=== PATIENT | male | born 1950 | race Caucasian/White ===

== ENCOUNTER 2020-03-18 17:12 | Observation (INO) | payer MEDICARE, OTHER ==
[~2020-03-18] VITALS: Ht 175.3 cm; Wt 77.4 kg
[~2020-03-18 17:12] MED LIST: AMLO-150 PO; CALC500T29 PO; CARV12.52 PO; CARV25TA12 PO; CHOL200052 PO; CIPR250T2 PO; CITA20TA9 PO; ERGO500040 PO; GABA300C10 PO; HYDR-3343 PO; INSU100C; INSU100C5 SC; INSU100V8 SQ; MYCO180T10 PO; OMEP-110 PO; PRAV10TA2 PO; PRED10TA14 PO; TACR1CAP5 PO; TAMS0.4C2 PO; TRAM50TA2 PO
[2020-03-18] MEDS ORDERED: TELM80TA PO (17:48)
[2020-03-18] MEDS ORDERED: TACR1CAP5 PO (17:48)
[2020-03-18] MEDS ORDERED: TACR0.5C4 PO (17:48)
[2020-03-18] MEDS ORDERED: CARV25TA12 PO (17:48)
[2020-03-18] MEDS ORDERED: PRED5TAB PO (17:48)
[2020-03-18] MEDS ORDERED: EVER0.75 PO (17:51)
[2020-03-18] MEDS ORDERED: CHOL10003 PO (17:51)
[2020-03-18] MEDS ORDERED: ACIT10CA2 PO (17:51)
[2020-03-18] MEDS ORDERED: SODIUM CHLORIDE FLUSH 10ML SYR IVF ONE (18:00)
--- NOTE | 2020-03-18 18:10 | NUR ---
RECEIVED REPORT FROM JAMAR Espino RN. PT C/O SOB AND CP AFTER DIGGING POST HOLES IN THE BACKYARD. PT REPORTS PAIN ONLY HAPPENS WHEN HE EXERTS HIMSELF. PT DENIES COUGH, FEVERS, BODY ACHES, CHILLS.
[2020-03-18 18:41] LABS: BASOPHILS # (AUTO) 0.09 x10^3/uL (0-0.1); BASOPHILS % (AUTO) 2 % (0-1); EOSINOPHILS # (AUTO) 0.05 x10^3/uL (0-0.4); EOSINOPHILS % (AUTO) 1 % (1-7); LYMPHOCYTES # (AUTO) 0.46 x10^3/uL (1-3.4); LYMPHOCYTES % (AUTO) 10 % (22-44); MD NO; MEAN CORPUSCULAR HGB CONC 33.9 g/dL (33.2-36.2); MEAN CORPUSCULAR VOLUME 82.8 fL (81-97); MONOCYTES # (AUTO) 0.37 x10^3/uL (0.2-0.8); MONOCYTES % (AUTO) 8 % (2-9); NEUTROPHILS # (AUTO) 3.85 x10^3/uL (1.8-6.8); NEUTROPHILS % (AUTO) 80 % (42-75); PLATELET COUNT 276 x10^3/uL (130-400); RED BLOOD COUNT 4.37 x10^6/uL (4.38-5.82); RED CELL DISTRIBUTION WIDTH 14.5 % (9.4-14.8)
[2020-03-18 18:46] LABS: ALBUMIN 3.3 g/dL (3.4-5.0); ANION GAP 8 mmol/L (5-15); CALCIUM 8.9 mg/dL (8.5-10.1); CHLORIDE 107 mmol/L (98-107)
[2020-03-18 18:52] LABS: ALANINE AMINOTRANSFERASE 20 U/L (12-78); ALKALINE PHOSPHATASE 126 U/L (45-117); BILIRUBIN,TOTAL 0.4 mg/dL (0.2-1.0); CREATININE 1.69 mg/dL (0.7-1.3); TOTAL PROTEIN 6.9 g/dL (6.4-8.2); TROPONIN I < 0.015 ng/mL (0.000-0.045)
[2020-03-18] MEDS ORDERED: ONDANSETRON 2MG/ML, 2ML IVPush PRN (19:30)
[2020-03-18] MEDS ORDERED: morphine SULFATE 10 MG/ML, 1ML IVPush PRN (19:30)
[2020-03-18] MEDS ORDERED: NITROGLYCERIN 0.4 MG/SPRAY SL PRN (19:30)
[2020-03-18] MEDS ORDERED: LABETALOL 5MG/ML, 20ML IVPush PRN (19:30)
[2020-03-18] MEDS ORDERED: ENALAPRILAT 1.25 MG/ML, 2ML IVPush PRN (19:30)
[2020-03-18] MEDS ORDERED: BISACODYL 10 MG SUPP PR PRN (19:30)
[2020-03-18] MEDS ORDERED: NITROGLYCERIN 0.4 MG BOTTLE (25 TABS) SL PRN (19:30)
[2020-03-18] MEDS ORDERED: hydrALAzine 20 MG/ML, 1ML IVPush PRN (19:30)
[2020-03-18] MEDS ORDERED: DOCUSATE 100 MG CAPSULE PO PRN (19:30)
[2020-03-18] MEDS ORDERED: ACETAMINOPHEN 325 MG TABLET PO PRN (19:30)
[2020-03-18] MEDS ORDERED: POLYETHYLENE GLYCOL 17 GM PACKET PO PRN (19:30)
[2020-03-18] MEDS ORDERED: ONDANSETRON ODT 4 MG PO PRN (19:30)
[2020-03-18 20:02] LABS: INTERNATIONAL NORMALIZED RATIO 0.93 (0.93-1.1); PROTHROMBIN TIME 9.9 Seconds (9.6-11.5)
--- NOTE | 2020-03-18 20:07 | NUR ---
PT RESTING IN BED IN NAD. PT DENIES ANY CP. PT WAS DUE TO HAVE SKIN CANCER REMOVED FROM FACE AND HAD PRESURGICAL COVID TEST PRIOR TO SURGERY ON SUNDAY. PT DENIES ANY COVID SYMPTOMS.
[2020-03-18 20:26] VITALS: BP 181/85
[2020-03-18] MEDS: CARVEDILOL 25 MG TABLET PO SCH (20:43)
[2020-03-18] MEDS: HEPARIN 5,000 UNITS/ML, 1ML SQ SCH (20:43)
[2020-03-18] MEDS: OMEPRAZOLE 20 MG CAPSULE.DR PO SCH (20:46)
[2020-03-18] MEDS ORDERED: TACROLIMUS 1 MG CAPSULE PO SCH (21:00)
[2020-03-18] MEDS ORDERED: TAMSULOSIN 0.4 MG CAP.ER.24H PO SCH (21:00)
[2020-03-18] MEDS ORDERED: PRAVASTATIN 20 MG TABLET PO SCH (21:00)
[2020-03-18] MEDS ORDERED: TRAZODONE 50MG TABLET PO PRN (21:00)
[2020-03-18] MEDS ORDERED: [UNRECOGNIZED DRUG - OTHER] PO SCH ×2 (22:30→22:33)
[2020-03-18] MEDS ORDERED: AFINITOR PO SCH ×2 (22:30→22:33)
[2020-03-18] MEDS: EVEROLIMUS 0.75 MG PO SCH (22:46)
[2020-03-19] MEDS ORDERED: DEXTROSE 50%, 50ML SYRINGE IVPush PRN (01:00)
[2020-03-19] MEDS ORDERED: SODIUM CHLORIDE 0.9% 1,000 ML IV SCH (01:00)
[2020-03-19] MEDS ORDERED: DEXTROSE 4 GM TAB.CHEW PO PRN (01:00)
[2020-03-19] MEDS ORDERED: GLUCAGON 1 MG IM PRN (01:00)
[2020-03-19 02:04] VITALS: BP 137/70
[2020-03-19] MEDS: HEPARIN 5,000 UNITS/ML, 1ML SQ SCH ×2 (04:42→12:46)
[2020-03-19 04:56] LABS: BASOPHILS # (AUTO) 0.01 x10^3/uL (0-0.1); BASOPHILS % (AUTO) 0 % (0-1); EOSINOPHILS # (AUTO) 0.17 x10^3/uL (0-0.4); EOSINOPHILS % (AUTO) 4 % (1-7); LYMPHOCYTES % (AUTO) 18 % (22-44); MD NO; MEAN CORPUSCULAR HEMOGLOBIN 27.7 pg (27.5-34.5); MEAN CORPUSCULAR HGB CONC 33.3 g/dL (33.2-36.2); MEAN CORPUSCULAR VOLUME 83.2 fL (81-97); MEAN PLATELET VOLUME 6.8 fL (7.4-10.4); MONOCYTES # (AUTO) 0.49 x10^3/uL (0.2-0.8); MONOCYTES % (AUTO) 11 % (2-9); NEUTROPHILS # (AUTO) 2.99 x10^3/uL (1.8-6.8); NEUTROPHILS % (AUTO) 67 % (42-75); PLATELET COUNT 262 x10^3/uL (130-400); RED BLOOD COUNT 4.31 x10^6/uL (4.38-5.82); RED CELL DISTRIBUTION WIDTH 14.4 % (9.4-14.8)
[2020-03-19 05:05] LABS: CHLORIDE 110 mmol/L (98-107)
[2020-03-19 05:10] LABS: ANION GAP 5 mmol/L (5-15); CALCIUM 8.3 mg/dL (8.5-10.1); CHOL/HDL RATIO 2.9; CHOLESTEROL, TOTAL 170 mg/dL (140-239); CREATININE 1.55 mg/dL (0.7-1.3); HDL CHOL % 35 % (26-37); HDL CHOLESTEROL (DIRECT) 59 mg/dL (40-60); LDL CHOLESTEROL,CALCULATED 77 mg/dL (54-169); LDL/HDL RATIO 1.3 (0.5-3.0); TRIGLYCERIDES 169 mg/dL (50-200); VLDL CHOLESTEROL 34 mg/dL (0-25)
[2020-03-19] MEDS: INSULIN LISPRO 100 UNITS/ML, PEN SQ-INSULIN SCH ×2 (07:00→11:00)
[2020-03-19 07:30] VITALS: BP 165/88
[2020-03-19] MEDS ORDERED: NITROGLYCERIN 0.4 MG/SPRAY SL PRN (08:00)
[2020-03-19] MEDS ORDERED: NITROGLYCERIN 0.4 MG BOTTLE (25 TABS) SL PRN (08:00)
[2020-03-19] MEDS: OMEPRAZOLE 20 MG CAPSULE.DR PO SCH (08:19)
[2020-03-19] MEDS: CARVEDILOL 25 MG TABLET PO SCH (08:20)
[2020-03-19 08:23] LABS: TROPONIN I < 0.015 ng/mL (0.000-0.045)
[2020-03-19] MEDS ORDERED: REGADENOSON 0.4 MG/5 ML SYRINGE ONE (08:53)
[2020-03-19] MEDS ORDERED: CHOLECALCIFEROL 1,000 UNIT TABLET PO SCH (09:00)
[2020-03-19] MEDS ORDERED: TACROLIMUS 0.5 MG CAPSULE PO SCH (09:00)
[2020-03-19] MEDS ORDERED: SODIUM CHLORIDE FLUSH 10ML SYR IVF SCH (09:00)
[2020-03-19] MEDS: EVEROLIMUS 0.75 MG PO SCH (10:49)
[2020-03-19 14:00] VITALS: BP 168/72
== END 2020-03-19 16:55 | disposition home or self-care (01) ==
LOC: ED 19:40 → EDIP 19:44 → 5SO 20:23 → DCLOUNGE 03-19 16:47
PROVIDERS: ADMIT Family Medicine; ATTEND Family Medicine
DX: R07.89 Other chest pain (principal); I12.9 Hypertensive chronic kidney disease with stage 1 through stage 4 chronic kidney disease, or unspecified chronic kidney disease; E11.22 Type 2 diabetes mellitus with diabetic chronic kidney disease; N18.9 Chronic kidney disease, unspecified; D63.1 Anemia in chronic kidney disease; T86.19 Other complication of kidney transplant; F32.9 Major depressive disorder, single episode, unspecified; K21.9 Gastro-esophageal reflux disease without esophagitis; E78.5 Hyperlipidemia, unspecified; R79.89 Other specified abnormal findings of blood chemistry; Y83.0 Surgical operation with transplant of whole organ as the cause of abnormal reaction of the patient, or of later complication, without mention of misadventure at the time of the procedure; Z79.899 Other long term (current) drug therapy; Z85.828 Personal history of other malignant neoplasm of skin; Z94.0 Kidney transplant status
CPT/HCPCS: 36415; 71045; 78452; 80048; 80053; 80061; 82962; 83036; 83880; 84443; 84484; 85025; 85610; 93005; 93017; 96372; 99285; A9502; G0378; J1644; J2785; J7030; J7507; J7512; 96360; 96361